=== PATIENT | male | born 1995 | race Caucasian/White ===

== ENCOUNTER 2019-09-11 18:12 | Inpatient (IN) | payer SELFPAY ==
[2019-09-11] VITALS (14 sets, daily range): BP systolic 106–134; BP diastolic 75–109
[~2019-09-11] VITALS: Ht 167.6 cm; Wt 61.2 kg
[2019-09-11] MEDS ORDERED: Naloxone 1mg/ml 2ml ONE ×2 (18:19→18:21)
--- NOTE | 2019-09-11 18:25 | NUR ---
ED Nurse Note: Pt brought in by ambulance d/t apparent overdose. Pt was found unconscious on the street. GCS 3. No gag reflex noted. Does not arouse to sternal rub. Pupils 2 cm and non-reactive to light. 6 mg of narcan given by EMS with no change. Pt does not follow with eyes. Pt is apneic. 8 respirations/min. O2 saturation of 96% on room air. 2 more mg of narcan given as verbally ordered by ED MD. No change in level of consciousness. ED MD plan to intubate to protect airway. IV inserted. All other vital signs stable as documented. Pt on the monitor. Addendum: 09/11/19 at 1922 by BDUTTON Pt noted to be diaphoretic. Afib on the monitor.
--- NOTE | 2019-09-11 18:41 | Emergency Room Report ---
History of Present Illness General Chief Complaint: Overdose Source: EMS Present Illness HPI Disclaimer: Please note that this report is being documented using [employer] technology. This can lead to erroneous entry secondary to incorrect interpretation by the dictating instrument. HPI: Toy De León presents by EMS for altered mental status. Reportedly, the patient walked into a convenience store fell to the ground and was unresponsive. He had a palpable pulse and good pressures on arrival though he was apneic. EMS gave 2 mg intramuscular Narcan without effect. Followed by 4 mg IV Narcan with mild improvement in his respiratory rate. He did not regain consciousness. Vital signs were stable during transport though he was being bagged for intermittent apnea. On arrival the patient does not respond to painful stimuli, has no gag reflex, agonal breathing with intermittent apnea. Intubated for airway protection. PMH: Unknown PSH: Unknown Allergies: Unknown Social Hx: Unknown Allergies: Coded Allergies: UNABLE TO ASSESS (Unverified , 09/11/19) Nursing Documentation-PMH Past Medical History Deferred: Patient Unconscious Past Medical History: Deferred Review of Systems All Other Systems: limited - Unable to obtain from patient due to clinical condition Physical Exam Vital Signs Date Time Temp Pulse Resp B/P (MAP) Pulse Ox O2 Delivery O2 Flow Rate FiO2 09/11/19 18:16 98.2 130 18 122/78 (93) 94 Room Air General: GCS 3 HEENT: NC/AT. Pupils are 3 mm and nonreactive. Pupils are equal. No evidence of head or neck trauma. Cardiovascular: Tachycardic. S1 and S2 normal. No murmur appreciated Resp: Agonal breathing with intermittent apnea. Lungs are clear otherwise. No wheezing Abdomen: Abdomen is soft, nondistended. Nontender Skin: Diaphoretic. Intact with no rash MSK: Normal tone and bulk. Spontaneous movements. No obvious deformity. Neuro: GCS 3 Procedures Critical Care Time Critical Care Time Total critical care time: Approximately 45 minutes Due to a high probability of clinically significant, life threatening deterioration, the patient required the highest level of preparedness to intervene emergently and I personally spent this critical care time directly and personally managing the patient. This critical care time included obtaining a history, examining the patient, pulse oximetry, ordering and reviewing studies , ordering treatments, evaluating response to treatment and updating management plan as needed, frequent reassessment and discussion with other providers as well as arranging for ultimate disposition. This critical to care time was performed to assess and manage the high probability of life-threatening deterioration that could result in multiorgan failure. This critical care time is separate from the separately billable procedures and treating other patients. Intubation Intubation : Consent: Emergent Intubation Method: orotracheal Tube Size (cm): 7.5 Medications: Etomidate - 20mg, Rocuronium - 100mg Breath Sounds after Intubation: equal Intubation Complications: no complications Post Intubation Xray: Yes Progress/Xray Impression: Endotracheal tube tip above the coleen Attempts: One Patient Tolerated: Well Complications: None Medical Decision Making Diagnostic Impression: Primary Impression: AMS (altered mental status) Additional Impressions: Respiratory failure Atrial fibrillation Substance abuse ER Course 24-year-old Toy De León brought in for altered mental status and for intoxication though he is diaphoretic and tachycardic with agonal respirations and periods of apnea. He was intubated for airway protection and low GCS. Patient be sent for head CT, broad labs including tox. He will be admitted to the ICU. Laboratory Tests Test 09/11/19 19:30 09/11/19 20:36 White Blood Count 9.0 K/UL (4.8-10.8) Red Blood Count 4.33 M/UL (4.70-6.10) L Hemoglobin 14.7 G/DL (14.2-18.0) Hematocrit 42.5 % (42.0-52.0) Mean Corpuscular Volume 98 FL (80-99) Mean Corpuscular Hemoglobin 33.9 PG (27.0-31.0) H Mean Corpuscular Hemoglobin Concent 34.5 G/DL (32.0-36.0) Red Cell Distribution Width 11.1 % (11.6-14.8) L Platelet Count 285 K/UL (150-450) Mean Platelet Volume 7.1 FL (6.5-10.1) Neutrophils (%) (Auto) 65.2 % (45.0-75.0) Lymphocytes (%) (Auto) 24.9 % (20.0-45.0) Monocytes (%) (Auto) 8.1 % (1.0-10.0) Eosinophils (%) (Auto) 1.0 % (0.0-3.0) Basophils (%) (Auto) 0.9 % (0.0-2.0) Urine Color Yellow Urine Appearance Slightly cloudy Urine pH 5 (4.5-8.0) Urine Specific [place] 1.025 (1.005-1.035) Urine Protein 1+ (NEGATIVE) H Urine Glucose (UA) Negative (NEGATIVE) Urine Ketones 3+ (NEGATIVE) H Urine Blood 1+ (NEGATIVE) H Urine Nitrite Negative (NEGATIVE) Urine Bilirubin Negative (NEGATIVE) Urine Urobilinogen Normal MG/DL (0.0-1.0) Urine Leukocyte Esterase Negative (NEGATIVE) Urine RBC 0-2 /HPF (0 - 0) H Urine WBC 0-2 /HPF (0 - 0) Urine Squamous Epithelial Cells None /LPF (NONE/OCC) Urine Bacteria Few /HPF (NONE) Sodium Level 138 MMOL/L (136-145) Potassium Level 3.9 MMOL/L (3.5-5.1) Chloride Level 102 MMOL/L (98-107) Carbon Dioxide Level 20 MMOL/L (21-32) L Anion Gap 16 mmol/L (5-15) H Blood Urea Nitrogen 27 mg/dL (7-18) H Creatinine 1.2 MG/DL (0.55-1.30) Estimate Glomerular Filtration Rate > 60 mL/min (>60) Glucose Level 91 MG/DL (74-106) Lactic Acid Level 0.80 mmol/L (0.4-2.0) Calcium Level 8.9 MG/DL (8.5-10.1) Total Bilirubin 1.1 MG/DL (0.2-1.0) H Direct Bilirubin 0.3 MG/DL (0.0-0.3) Aspartate Amino Transferase (AST) 39 U/L (15-37) H Alanine Aminotransferase (ALT) 47 U/L (12-78) Alkaline Phosphatase 51 U/L (46-116) Troponin I 0.000 ng/mL (0.000-0.056) Total Protein 7.0 G/DL (6.4-8.2) Albumin 4.2 G/DL (3.4-5.0) Globulin 2.8 g/dL Albumin/Globulin Ratio 1.5 (1.0-2.7) Salicylates Level < 0.2 ug/mL (2.8-20) L Urine Opiates Screen Negative (NEGATIVE) Acetaminophen Level < 2 MCG/ML (10-30) L Urine Barbiturates Screen Negative (NEGATIVE) Phencyclidine (PCP) Screen Negative (NEGATIVE) Urine Amphetamines Screen Positive (NEGATIVE) H Urine Benzodiazepines Screen Negative (NEGATIVE) Urine Cocaine Screen Positive (NEGATIVE) H Urine Marijuana (THC) Screen Positive (NEGATIVE) H Serum Alcohol < 3 mg/dL Arterial Blood pH 7.317 (7.350-7.450) Arterial Blood Partial Pressure CO2 30.2 mmHg (35.0-45.0) L Arterial Blood Partial Pressure O2 160.1 mmHg (75.0-100.0) H Arterial Blood HCO3 15.1 mmol/L (22.0-26.0) *L Arterial Blood Oxygen Saturation 98.7 % (95-100) Arterial Blood Base Excess -9.5 (-2-2) *L Hoang Test Positive EKG Diagnostic Results EKG Time: 18:42 Rate: tachycardiac Rhythm: other - Atrial fibrillation Rhythm Strip Diag. Results Rhythm Strip Time: 18:42 EP Interpretation: yes Rate: 100 Rhythm: other - Atrial fibrillation versus flutter Chest X-Ray Diagnostic Results Chest X-Ray Diagnostic Results : Chest X-Ray Ordered: Yes # of Views/Limited/Complete: 1 View Indication: Shortness of Breath EP Interpretation: Yes Interpretation: no consolidation, no effusion, no pneumothorax, other - Endotracheal tube above the coleen. Impression: Other - Endotracheal tube in satisfactory position Electronically Signed by: Electronically signed by Dr. Ramirez Davidson CT/MRI/US Diagnostic Results CT/MRI/US Diagnostic Results : Impression Numbers: [id number] Preliminary Findings Only See Final Report For Complete Findings CT HEAD Without Contrast: Nondisplaced nasal bone fracture. No acute intracranial hemorrhage mass-effect or edema. Radiologist: Hector Luque MD Reevaluation Time: 21:57 Last Vital Signs Date Time Temp Pulse Resp B/P (MAP) Pulse Ox O2 Delivery O2 Flow Rate FiO2 09/11/19 18:16 98.2 130 18 122/78 (93) 94 Room Air Reevaluation Impression Talk screen positive for methamphetamines, cocaine, THC. May have used a substance that has not test on our drug panel. Remainder of labs are within normal limits. Patient will be admitted to the ICU for further care. Disposition: ADMITTED INPATIENT Condition: Critical Ramirez Davidson MD Sep 11, 2019 18:41
[2019-09-11] MEDS ORDERED: Rocuronium Bromide 50mg/5ml Inj IV ONE (18:45)
[2019-09-11] MEDS ORDERED: Etomidate 40mg/20ml Inj IV ONE (18:45)
--- NOTE | 2019-09-11 18:50 | NUR ---
ED Nurse Note: Pt intubated @ 23 cm lip line. AC 18 VT 500 55% PEEP 5. 99% O2 saturation.
--- NOTE | 2019-09-11 18:50 | NUR ---
ED Nurse Note: Propofol drip started at hospital policy of 5 mcg/kg/min
[2019-09-11] MEDS ORDERED: Naloxone 1mg/ml 2ml IVP ONE (19:00)
--- NOTE | 2019-09-11 19:14 | NUR ---
ED Nurse Note: CXR and CT head done. Pt back in room. No acute distress. Vitals stable on the monitor.
--- NOTE | 2019-09-11 19:25 | NUR ---
ED Nurse Note: Report given to Carlos Michel RN. Pt in stable condition; plan of care endorsed.
--- NOTE | 2019-09-11 19:30 | NUR ---
ED Nurse Note: received patient from pedrito zapata. patient sleeping with no acute distress. vss. pt intubated; attached to vent; tolerating well. right ac iv intact and patent; propofol running as prescribed per protocol. left wrist iv infiltrated; discontinued. established iv on left ac 18 g. lactic, blood cultures, mrsa vre cre swab, urine collected; sent down to lab. removed clothing from patient, completed belongings list, dressed pt in gown, reattached to monitor. head of bed raised; bed locked in lowest position; side rails raised.will continue to monitor.
--- NOTE | 2019-09-11 19:40 | Diagnostic Imaging Report ---
Indication: Headache Technique: Contiguous 5 mm thick transaxial imaging of the head obtained in a Siemens Sensation [address] scanner. Soft tissue and bone windows generated. Automatic Exposure Control was utilized. Total Dose length Product (DLP): [address] Dose Index Volume (CTDIvol): 62.7 mGy Comparison: none Findings: The size and configuration of the cortical sulci, basal cisterns, and ventricles are within normal limits for age. There is no mass effect, midline shift, or edema identified. There is no evidence of acute hemorrhage or abnormal intra-axial or extra-axial fluid collections. There is a fracture of the nasal bone. Bones and soft tissues are otherwise unremarkable. Impression: No mass effect, edema or acute bleed. Fracture nasal bone The CT scanner at [facility] is accredited by the [employer] and the scans are performed using dose optimization techniques as appropriate to a performed exam including Automatic Exposure control.
--- NOTE | 2019-09-11 19:45 | NUR ---
ED Nurse Note: REPEAT EKG DONE BY ERTECH; PT IN AFIB
[2019-09-11 20:17] LABS: BASOPHILS % (AUTO) 0.9 % (0.0-2.0); HEMATOCRIT 42.5 % (42.0-52.0); HEMOGLOBIN 14.7 G/DL (14.2-18.0); LYMPHOCYTES % (AUTO) 24.9 % (20.0-45.0); MEAN CORPUSCULAR VOLUME 98 FL (80-99); MONOCYTES % (AUTO) 8.1 % (1.0-10.0); NEUTROPHILS % (AUTO) 65.2 % (45.0-75.0); PLATELET COUNT 285 K/UL (150-450); RED BLOOD COUNT 4.33 M/UL (4.70-6.10); RED CELL DISTRIBUTION WIDTH 11.1 % (11.6-14.8)
--- NOTE | 2019-09-11 20:23 | NUR ---
ED Nurse Note: rt at bedside for ABG
[2019-09-11 20:40] LABS: ANION GAP 16 mmol/L (5-15); BLOOD UREA NITROGEN 27 mg/dL (7-18); CALCIUM 8.9 MG/DL (8.5-10.1); CARBON DIOXIDE 20 MMOL/L (21-32); CHLORIDE 102 MMOL/L (98-107); CREATININE 1.2 MG/DL (0.55-1.30); POTASSIUM 3.9 MMOL/L (3.5-5.1); SODIUM 138 MMOL/L (136-145)
[2019-09-11 20:50] LABS: APPEARANCE,URINE SLIGHTLY CLOUDY; BILIRUBIN, URINE NEGATIVE (NEGATIVE); GLUCOSE, URINE (UA) NEGATIVE (NEGATIVE); KETONES,URINE 3+ (NEGATIVE); LEUKOCYTE ESTERASE ,URINE NEGATIVE (NEGATIVE); NITRITE,URINE NEGATIVE (NEGATIVE); PH,URINE 5 (4.5-8.0); PROTEIN,URINE 1+ (NEGATIVE); UROBILINOGEN,URINE NORMAL MG/DL (0.0-1.0)
[2019-09-11 20:52] LABS: COLOR,URINE YELLOW
[2019-09-11 20:56] LABS: ALANINE AMINOTRANSFERASE 47 U/L (12-78); ALBUMIN 4.2 G/DL (3.4-5.0); ALBUMIN/GLOBULIN RATIO 1.5 (1.0-2.7); ALKALINE PHOSPHATASE 51 U/L (46-116); ASPARTATE AMINO TRANSFERASE 39 U/L (15-37); BILIRUBIN,TOTAL 1.1 MG/DL (0.2-1.0)
--- NOTE | 2019-09-11 21:00 | NUR ---
ED Nurse Note: rt at bedside. titrated fi02 from 50% to 40%
[2019-09-11 21:02] LABS: BILIRUBIN,DIRECT 0.3 MG/DL (0.0-0.3)
--- NOTE | 2019-09-11 21:10 | NUR ---
ED Nurse Note: Report given to emily zapata.
[2019-09-11] MEDS ORDERED: Nitroglycerin Subl 0.4mg tab SL PRN (21:15)
[2019-09-11] MEDS ORDERED: dilTIAZem HCl 25mg/5ml Inj IV PRN (21:15)
[2019-09-11] MEDS ORDERED: Albuterol/Ipratropium 3ml neb HHN PRN (21:15)
--- NOTE | 2019-09-11 21:15 | NUR ---
TRANSFER TO FLOOR: Patient transferred to icu 246e as ordered, per williams shine. Report given to emily zapata. patient stable for transfer. transported patient to unit via gurney with 2 rn and rt. patient left with belongings and admission packet.
--- NOTE | 2019-09-11 21:30 | NUR ---
NURSE NOTES: Patient admitted from ER via rney accompanied by RN and agricultural research technician. Admitted under the care of Dr. Mota with admitting diagnosis of AMS. Patient is lethargic with on and off episode of trying to pull out tubing. patient is intubated ETT 7.5/23cm AC 18, TV 500, Fi02 40%, peep of 5 satting 100%. Patient identity is unknown at this time. HOB elevated. inserted condom cath. Temp 97.9 Oral. body assessment done. bed alarm on. bed locked n ad in low position. Admission orders placed by Dr Cadena. will continue plan of care.
[2019-09-11] MEDS: D5 1/2NS 1,000 ML IV SCH (22:23)
--- NOTE | 2019-09-11 22:53 | Diagnostic Imaging Report ---
Indication: Abdominal pain Comparison: None Single view of the abdomen obtained Findings: NG tube is present. The proximal and distal ports are in the stomach. Bowel gas pattern is nonspecific. Bones are unremarkable. IMPRESSION: NG tube in good position. No acute findings
--- NOTE | 2019-09-11 22:54 | NUR ---
RESPIRATORY NOTE: Received pt from ED on AC 16, 600VT, 40%, PEEP +5. Pt intubated w/ ETT 7.5 @ 23cm lipline, secured by anchorfast. Pt asleep/lethargic. B/S weston. diminished, nonproductive cough, sxn prn scant amounts of thin, clear secretions, oral sxn w/ bloody secretions. Both hands on soft restraints to prevent pt from self extubation. Vent plugged into red outlet, ambubag at bedside. Pt in no apparent distress at this time. Will continue to monitor pt.
--- NOTE | 2019-09-11 23:30 | NUR ---
NURSE NOTES: patient with on and off episode of pulling out tubing, kicking reality orientation provided. repositioned. patient with 50cc brownish residual from OGT. HOB elevated. Bilateral soft wrist restraint checked. frequent visual checks continued. condom cath intact no urine output. will continue to monitor patient.
[2019-09-12] VITALS (33 sets, daily range): BP systolic 90–127; BP diastolic 47–98
[2019-09-12] MEDS: LORazepam Inj 2mg/ml 1ml IV PRN ×4 (00:37→09:36)
--- NOTE | 2019-09-12 00:37 | NUR ---
NURSE NOTES: patient with episode of agitation kicking, hitting, pulling tubing despite of bilateral soft wrist restraint reality orientation provided explained the importance v/s risk and benefits not effective also pt with episode of vomiting brownish secretion. HOB elevated. Ativan 2mg and Zofran given will continue to monitor patient.
[2019-09-12] MEDS: Morphine Sulfate 4mg/ml Inj (IV USE ONLY) IVP PRN ×2 (01:45→07:07)
--- NOTE | 2019-09-12 03:00 | NUR ---
NURSE NOTES: patient with episode of agitation kicking, hitting, pulling tubing despite of bilateral soft wrist restraint reality orientation provided explained the importance v/s risk and benefits not effective HOB elevated. Ativan 2mg given will continue to monitor patient. frequent visual checks continued.
--- NOTE | 2019-09-12 05:09 | NUR ---
NURSE NOTES: patient with episode of agitation kicking, hitting, pulling tubing despite of bilateral soft wrist restraint reality orientation provided explained the importance v/s risk and benefits not effective HOB elevated. Ativan 2mg given will continue to monitor patient. left message to Dr. Cadena regarding patient very agitated. will follow up. frequent visual checks continued.
[2019-09-12 06:10] LABS: HEMATOCRIT 33.5 % (42.0-52.0); HEMOGLOBIN 12.5 G/DL (14.2-18.0); LYMPHOCYTES % (AUTO) 20.1 % (20.0-45.0); MEAN CORPUSCULAR VOLUME 94 FL (80-99); MONOCYTES % (AUTO) 8.5 % (1.0-10.0); NEUTROPHILS % (AUTO) 69.4 % (45.0-75.0); PLATELET COUNT 323 K/UL (150-450); RED BLOOD COUNT 3.58 M/UL (4.70-6.10); RED CELL DISTRIBUTION WIDTH 10.6 % (11.6-14.8); WHITE BLOOD COUNT 10.6 K/UL (4.8-10.8)
[2019-09-12 06:35] LABS: ALANINE AMINOTRANSFERASE 43 U/L (12-78); ALBUMIN 4.2 G/DL (3.4-5.0); ALKALINE PHOSPHATASE 53 U/L (46-116); ASPARTATE AMINO TRANSFERASE 37 U/L (15-37); BILIRUBIN,DIRECT 0.2 MG/DL (0.0-0.3); BILIRUBIN,TOTAL 1.5 MG/DL (0.2-1.0); LACTATE DEHYDROGENASE 272 U/L (81-234); PHOSPHORUS 4.7 MG/DL (2.5-4.9)
--- NOTE | 2019-09-12 06:53 | NUR ---
NURSE NOTES: Dr Cadena made aware of patient agitated, vomited with 200cc dark color with new order noted and carried out.
[2019-09-12] MEDS ORDERED: Haloperidol Lactate 5 MG in D5W 55 ML IVPB PRN ×2 (07:00→11:00)
--- NOTE | 2019-09-12 07:15 | NUR ---
HAND-OFF: Report given to Brandi BLANCO. Morphine given for pain.
--- NOTE | 2019-09-12 07:16 | NUR ---
NURSE NOTES: Received patient from FRANCIS Chin. Patient admitted last night for possible over dose. Patient sits up in bed and kicks legs but does not open eyes or attempt to communicate. Identity of patient is still unknown. Patient orally intubated with size 7.5cm ET tube with 23cm at the lip line. Ventilator setting is AC 18, tidal volume 600, FiO2 40%, and PEEP 5. Patient NPO at this time. Patient vomited bloody emesis and coffee ground emesis during the night. Patient has oral gastric tube that is hooked to low intermittent suction. Gastric secretion is red/brown in color. Patient has bilateral AC peripheral 18 gauge IVs that are patent, asymptomatic. The right AC PIV is running D5 0.45% NS at 75mL/hr at this time. Left AC IV saline locked. Patient has becerra for urine retention that is patent, asymptomatic, and draining light michael urine at this time. Patient on bilateral soft wrist restraint due to him being witnessed attempting to self extubate. Patient peripheral pulses present. Skin intact. Patient bed in low position with bed alarm on and call light in reach at this time. Patient repositioned and oral care performed at this time. Will continue to monitor.
[2019-09-12 07:27] LABS: ANION GAP 19 mmol/L (5-15); BLOOD UREA NITROGEN 18 mg/dL (7-18); CALCIUM 8.9 MG/DL (8.5-10.1); CARBON DIOXIDE 16 MMOL/L (21-32); CHLORIDE 102 MMOL/L (98-107); POTASSIUM 4.1 MMOL/L (3.5-5.1); SODIUM 137 MMOL/L (136-145)
--- NOTE | 2019-09-12 08:54 | NUR ---
RD ASSESSMENT & RECOMMENDATIONS SEE CARE ACTIVITY FOR COMPLETE ASSESSMENT DAILY ESTIMATED NEEDS: Needs based on critical care 61.4kg 22-28 kcals/kg [id number] total kcals 1.2-2 g protein/kg 74-123 g total protein 25-30 mL/kg 0057-6038 total fluid mLs NUTRITION DIAGNOSIS: Swallowing difficulty r/t resp status as evidenced by pt w/ overdose, positive tox screening, no intubated, ICU status, NPO. CURRENT DIET: NPO ENTERAL NUTRITION RECOMMENDATIONS: Vital 1.2 @55ml/hr x24 hrs to provide 1320ml, 1584 kcal, 99g pro, 1071ml free H2O - When medically appropriate, rec non oral feeds while intubated. - Start Vital 1.2 @15ml/hr x6 hrs. Advance as tolerated 10ml/hr q4-6 hrs to goal. - Flush per MD. HOB over 30 degrees ADDITIONAL RECOMMENDATIONS: 1) TF recs as above when medically appropriate to feeds 2) Check A1C 3) Maintain calibrated bed scale wts 4) F/up w/ GI
[2019-09-12] MEDS ORDERED: Heparin 5000 units/ml inj SUBQ SCH (09:00)
--- NOTE | 2019-09-12 09:06 | NUR ---
NURSE NOTES: Heparin held as patient has bloody/black/brown emesis and Hgb level dropped overnight.
--- NOTE | 2019-09-12 09:36 | NUR ---
NURSE NOTES: Patient opened eyes and attempted to communicate. He tried to ask what happen. Patient informed that he was found passed out in a drug store and was brought to the hospital and intubated because he was unresponsive. Unable to assess patient's level of understanding at this time. Patient restless and trying to get out of bed. Patient told that he needs to stay calm and stay in bed for now. Ativan given at this time to help patient stay calm. Will continue to monitor.
--- NOTE | 2019-09-12 10:33 | Pulmonolgy Critical Care Note ---
Critical Care - Asmt/Plan Problems: (1) Acute respiratory failure (2) AMS (altered mental status) (3) Multiple drug overdose Respiratory: monitor respiratory rate, adjust FIO2, other - extubate when awake Cardiac: continue to monitor HR/BP Renal: F/U I&O Infectious Disease: check cultures Gastrointestinal: continue feedings/current rate Endocrine: monitor blood sugar Hematologic: monitor H/H Neurologic: PRN Ativan Disposition: keep in ICU Notes Reviewed: cardio Discussed with: nurses, consultants, field case managersenior national account manager - Objective Last 24 Hour Vital Signs Date Time Temp Pulse Resp B/P (MAP) Pulse Ox O2 Delivery O2 Flow Rate FiO2 09/12/19 08:59 99 16 30 09/12/19 07:00 90 16 121/83 (96) 100 09/12/19 06:38 104 16 40 09/12/19 06:30 89 16 113/81 (92) 100 09/12/19 06:30 89 16 09/12/19 06:00 89 16 123/83 (96) 100 09/12/19 05:30 99 16 120/81 (94) 100 09/12/19 05:05 104 25 40 09/12/19 05:00 98.4 128 24 105/85 (92) 100 09/12/19 04:00 Mechanical Ventilator 09/12/19 04:00 40 09/12/19 04:00 106 16 123/98 (106) 09/12/19 04:00 111 09/12/19 03:00 116 16 126/70 (88) 100 09/12/19 02:59 107 16 40 09/12/19 02:30 100 16 127/69 (88) 100 09/12/19 02:15 97.9 09/12/19 02:00 95 16 120/88 (99) 100 09/12/19 01:30 95 16 122/92 (102) 100 09/12/19 01:00 92 16 118/84 (95) 100 09/12/19 00:55 84 16 40 09/12/19 00:30 121 21 125/84 (98) 100 09/12/19 00:00 97.9 82 16 114/82 (93) 100 09/12/19 00:00 Mechanical Ventilator 09/12/19 00:00 71 09/12/19 00:00 40 09/11/19 23:30 73 16 116/75 (89) 100 09/11/19 23:15 70 16 119/86 (97) 100 09/11/19 23:00 72 16 121/86 (98) 100 09/11/19 22:51 75 16 40 09/11/19 22:51 Mechanical Ventilator 09/11/19 22:45 69 16 117/84 (95) 100 09/11/19 22:30 66 16 112/85 (94) 100 09/11/19 22:15 65 18 106/80 (89) 100 09/11/19 22:00 70 17 114/80 (91) 100 09/11/19 21:45 74 18 116/96 (103) 100 09/11/19 21:39 71 16 125/99 (108) 100 09/11/19 21:39 83 18 100 Mechanical Ventilator 40 09/11/19 21:39 83 18 40 09/11/19 21:30 97.7 82 19 100 09/11/19 21:29 43 09/11/19 21:15 98.2 77 18 123/98 100 Mechanical Ventilator 40 09/11/19 21:00 98.2 77 18 123/98 100 Mechanical Ventilator 40 09/11/19 20:56 40 09/11/19 20:30 98.2 77 18 116/91 100 Mechanical Ventilator 50 09/11/19 20:28 18 116/91 Mechanical Ventilator 50 09/11/19 20:20 18 126/90 Mechanical Ventilator 50 09/11/19 20:05 18 124/96 Mechanical Ventilator 50 09/11/19 20:00 98.2 77 18 134/109 100 Mechanical Ventilator 50 09/11/19 19:50 18 134/109 Mechanical Ventilator 50 09/11/19 19:35 18 126/99 Mechanical Ventilator 50 09/11/19 19:30 98.2 77 18 126/99 100 Mechanical Ventilator 55 09/11/19 19:30 50 09/11/19 19:20 18 115/84 Mechanical Ventilator 55 09/11/19 19:05 18 118/98 Mechanical Ventilator 55 09/11/19 18:49 25 104/61 Mechanical Ventilator 09/11/19 18:35 98.2 102 8 122/78 94 Room Air 09/11/19 18:35 105 8 Room Air 09/11/19 18:16 98.2 130 18 122/78 (93) 94 Room Air Status: sedated Condition: critical HEENT: atraumatic Neck: full ROM Lungs: chest wall tender Heart: HR/BP unstable Abdomen: non-tender, feeding tube Extremities: no C/C/E Critical Care - Subjective ROS Limited/Unobtainable: Yes Interval Events: Paramedics brought this young davy to ER from a store unconsciousness. He was intubated in ER and transferred to ICU. FI02: 30 Vent Support Breath Rate: 16 Vent Support Mode: AC Vent Tidal Volume: 600 Sputum Amount: None PEEP: 5.0 PIP: 22 I&O: Intake and Output 09/11/19 09/12/19 19:00 07:00 Intake Total 0 ml 637.312 ml Output Total 1500 ml Balance 0 ml -862.688 ml Intake Oral 0 ml IV Total 637.312 ml Output Urine Total 1300 ml Gastric Drainage Total 200 ml ET-Tube: 7.0 ET Position: 23 Labs: Laboratory Tests Test 09/11/19 19:30 09/11/19 20:36 09/12/19 04:50 White Blood Count 9.0 K/UL (4.8-10.8) 10.6 K/UL (4.8-10.8) Red Blood Count 4.33 M/UL (4.70-6.10) L 3.58 M/UL (4.70-6.10) L Hemoglobin 14.7 G/DL (14.2-18.0) 12.5 G/DL (14.2-18.0) L Hematocrit 42.5 % (42.0-52.0) 33.5 % (42.0-52.0) L Mean Corpuscular Volume 98 FL (80-99) 94 FL (80-99) Mean Corpuscular Hemoglobin 33.9 PG (27.0-31.0) H 34.9 PG (27.0-31.0) H Mean Corpuscular Hemoglobin Concent 34.5 G/DL (32.0-36.0) 37.3 G/DL (32.0-36.0) H Red Cell Distribution Width 11.1 % (11.6-14.8) L 10.6 % (11.6-14.8) L Platelet Count 285 K/UL (150-450) 323 K/UL (150-450) Mean Platelet Volume 7.1 FL (6.5-10.1) 5.5 FL (6.5-10.1) L Neutrophils (%) (Auto) 65.2 % (45.0-75.0) 69.4 % (45.0-75.0) Lymphocytes (%) (Auto) 24.9 % (20.0-45.0) 20.1 % (20.0-45.0) Monocytes (%) (Auto) 8.1 % (1.0-10.0) 8.5 % (1.0-10.0) Eosinophils (%) (Auto) 1.0 % (0.0-3.0) 1.0 % (0.0-3.0) Basophils (%) (Auto) 0.9 % (0.0-2.0) 1.0 % (0.0-2.0) Urine Color Yellow Urine Appearance Slightly cloudy Urine pH 5 (4.5-8.0) Urine Specific [place] 1.025 (1.005-1.035) Urine Protein 1+ (NEGATIVE) H Urine Glucose (UA) Negative (NEGATIVE) Urine Ketones 3+ (NEGATIVE) H Urine Blood 1+ (NEGATIVE) H Urine Nitrite Negative (NEGATIVE) Urine Bilirubin Negative (NEGATIVE) Urine Urobilinogen Normal MG/DL (0.0-1.0) Urine Leukocyte Esterase Negative (NEGATIVE) Urine RBC 0-2 /HPF (0 - 0) H Urine WBC 0-2 /HPF (0 - 0) Urine Squamous Epithelial Cells None /LPF (NONE/OCC) Urine Bacteria Few /HPF (NONE) Sodium Level 138 MMOL/L (136-145) 137 MMOL/L (136-145) Potassium Level 3.9 MMOL/L (3.5-5.1) 4.1 MMOL/L (3.5-5.1) Chloride Level 102 MMOL/L (98-107) 102 MMOL/L (98-107) Carbon Dioxide Level 20 MMOL/L (21-32) L 16 MMOL/L (21-32) L Anion Gap 16 mmol/L (5-15) H 19 mmol/L (5-15) H Blood Urea Nitrogen 27 mg/dL (7-18) H 18 mg/dL (7-18) Creatinine 1.2 MG/DL (0.55-1.30) 1.0 MG/DL (0.55-1.30) Estimat Glomerular Filtration Rate > 60 mL/min (>60) > 60 mL/min (>60) Glucose Level 91 MG/DL (74-106) 109 MG/DL (74-106) H Lactic Acid Level 0.80 mmol/L (0.4-2.0) Calcium Level 8.9 MG/DL (8.5-10.1) 8.9 MG/DL (8.5-10.1) Total Bilirubin 1.1 MG/DL (0.2-1.0) H 1.5 MG/DL (0.2-1.0) H Direct Bilirubin 0.3 MG/DL (0.0-0.3) 0.2 MG/DL (0.0-0.3) Aspartate Amino Transf (AST/SGOT) 39 U/L (15-37) H 37 U/L (15-37) Alanine Aminotransferase (ALT/SGPT) 47 U/L (12-78) 43 U/L (12-78) Alkaline Phosphatase 51 U/L (46-116) 53 U/L (46-116) Troponin I 0.000 ng/mL (0.000-0.056) Total Protein 7.0 G/DL (6.4-8.2) 7.6 G/DL (6.4-8.2) Albumin 4.2 G/DL (3.4-5.0) 4.2 G/DL (3.4-5.0) Globulin 2.8 g/dL Albumin/Globulin Ratio 1.5 (1.0-2.7) Salicylates Level < 0.2 ug/mL (2.8-20) L Urine Opiates Screen Negative (NEGATIVE) Acetaminophen Level < 2 MCG/ML (10-30) L Urine Barbiturates Screen Negative (NEGATIVE) Phencyclidine (PCP) Screen Negative (NEGATIVE) Urine Amphetamines Screen Positive (NEGATIVE) H Urine Benzodiazepines Screen Negative (NEGATIVE) Urine Cocaine Screen Positive (NEGATIVE) H Urine Marijuana (THC) Screen Positive (NEGATIVE) H Serum Alcohol < 3 mg/dL Arterial Blood pH 7.317 (7.350-7.450) Arterial Blood Partial Pressure CO2 30.2 mmHg (35.0-45.0) L Arterial Blood Partial Pressure O2 160.1 mmHg (75.0-100.0) H Arterial Blood HCO3 15.1 mmol/L (22.0-26.0) *L Arterial Blood Oxygen Saturation 98.7 % (95-100) Arterial Blood Base Excess -9.5 (-2-2) *L Hoang Test Positive Prothrombin Time 10.7 SEC (9.30-11.50) Prothromb Time International Ratio 1.0 (0.9-1.1) Activated Partial Thromboplast Time 27 SEC (23-33) Phosphorus Level 4.7 MG/DL (2.5-4.9) Lactate Dehydrogenase 272 U/L (81-234) H Poli Cadena MD Sep 12, 2019 10:33
[2019-09-12] MEDS: D5 1/2NS 1,000 ML IV SCH ×2 (10:40→23:57)
--- NOTE | 2019-09-12 11:38 | GI Initial Consult Note ---
History of Present Illness General Date patient seen: Sep 12, 2019 Time patient seen: 11:31 Reason for Hospitalization: Overdose Referring physician: KATHY GORDON Reason for Consultation: GI BLEED Present Illness HPI Toy De León presents by EMS for altered mental status. Reportedly, the patient walked into a convenience store fell to the ground and was unresponsive. He had a palpable pulse and good pressures on arrival though he was apneic. EMS gave 2 mg intramuscular Narcan without effect. Followed by 4 mg IV Narcan with mild improvement in his respiratory rate. He did not regain consciousness. Vital signs were stable during transport though he was being bagged for intermittent apnea. On arrival the patient does not respond to painful stimuli , has no gag reflex, agonal breathing with intermittent apnea. Intubated for airway protection. GI consulted for coffee-ground emesis. ROS limited, patient unconscious intubated with in the ICU. Patient seen, periods of alertness. Patient presently has orogastric tube, noted with coffee-ground emesis.Laboratory reviewed; hemoglobin 12.5 hematocrit 33.5, INR 1.0, total bilirubin 1.5. Unable to obtain any history from the patient. Unknown history of endoscopic or colonoscopy. CT of the head with no contrast noted no mass-effect, edema or acute bleed. Urine toxicity positive for amphetamines, cocaine, marijuana. Med list reviewed/reconciled: Yes Allergies: Coded Allergies: UNABLE TO ASSESS (Unverified , 09/11/19) Patient History History Provided By: Medical Record PMH Narrative PMH: Unknown PSH: Unknown Allergies: Unknown Social Hx: Unknown Allergies: Coded Allergies: UNABLE TO ASSESS (Unverified , 09/11/19) Nursing Documentation-[facility] Past Medical History Deferred: Patient Unconscious Past Medical History: Deferred Social History: Reports: drug use Review of Systems All Other Systems: limited Physical Exam Vital Signs Date Time Temp Pulse Resp B/P (MAP) Pulse Ox O2 Delivery O2 Flow Rate FiO2 09/11/19 18:16 98.2 130 18 122/78 (93) 94 Room Air 09/11/19 19:05 55 Sp02 EP Interpretation: reviewed Labs Laboratory Tests Test 09/11/19 19:30 09/11/19 20:36 09/12/19 04:50 White Blood Count 9.0 K/UL (4.8-10.8) 10.6 K/UL (4.8-10.8) Red Blood Count 4.33 M/UL (4.70-6.10) L 3.58 M/UL (4.70-6.10) L Hemoglobin 14.7 G/DL (14.2-18.0) 12.5 G/DL (14.2-18.0) L Hematocrit 42.5 % (42.0-52.0) 33.5 % (42.0-52.0) L Mean Corpuscular Volume 98 FL (80-99) 94 FL (80-99) Mean Corpuscular Hemoglobin 33.9 PG (27.0-31.0) H 34.9 PG (27.0-31.0) H Mean Corpuscular Hemoglobin Concent 34.5 G/DL (32.0-36.0) 37.3 G/DL (32.0-36.0) H Red Cell Distribution Width 11.1 % (11.6-14.8) L 10.6 % (11.6-14.8) L Platelet Count 285 K/UL (150-450) 323 K/UL (150-450) Mean Platelet Volume 7.1 FL (6.5-10.1) 5.5 FL (6.5-10.1) L Neutrophils (%) (Auto) 65.2 % (45.0-75.0) 69.4 % (45.0-75.0) Lymphocytes (%) (Auto) 24.9 % (20.0-45.0) 20.1 % (20.0-45.0) Monocytes (%) (Auto) 8.1 % (1.0-10.0) 8.5 % (1.0-10.0) Eosinophils (%) (Auto) 1.0 % (0.0-3.0) 1.0 % (0.0-3.0) Basophils (%) (Auto) 0.9 % (0.0-2.0) 1.0 % (0.0-2.0) Urine Color Yellow Urine Appearance Slightly cloudy Urine pH 5 (4.5-8.0) Urine Specific [place] 1.025 (1.005-1.035) Urine Protein 1+ (NEGATIVE) H Urine Glucose (UA) Negative (NEGATIVE) Urine Ketones 3+ (NEGATIVE) H Urine Blood 1+ (NEGATIVE) H Urine Nitrite Negative (NEGATIVE) Urine Bilirubin Negative (NEGATIVE) Urine Urobilinogen Normal MG/DL (0.0-1.0) Urine Leukocyte Esterase Negative (NEGATIVE) Urine RBC 0-2 /HPF (0 - 0) H Urine WBC 0-2 /HPF (0 - 0) Urine Squamous Epithelial Cells None /LPF (NONE/OCC) Urine Bacteria Few /HPF (NONE) Sodium Level 138 MMOL/L (136-145) 137 MMOL/L (136-145) Potassium Level 3.9 MMOL/L (3.5-5.1) 4.1 MMOL/L (3.5-5.1) Chloride Level 102 MMOL/L (98-107) 102 MMOL/L (98-107) Carbon Dioxide Level 20 MMOL/L (21-32) L 16 MMOL/L (21-32) L Anion Gap 16 mmol/L (5-15) H 19 mmol/L (5-15) H Blood Urea Nitrogen 27 mg/dL (7-18) H 18 mg/dL (7-18) Creatinine 1.2 MG/DL (0.55-1.30) 1.0 MG/DL (0.55-1.30) Estimat Glomerular Filtration Rate > 60 mL/min (>60) > 60 mL/min (>60) Glucose Level 91 MG/DL (74-106) 109 MG/DL (74-106) H Lactic Acid Level 0.80 mmol/L (0.4-2.0) Calcium Level 8.9 MG/DL (8.5-10.1) 8.9 MG/DL (8.5-10.1) Total Bilirubin 1.1 MG/DL (0.2-1.0) H 1.5 MG/DL (0.2-1.0) H Direct Bilirubin 0.3 MG/DL (0.0-0.3) 0.2 MG/DL (0.0-0.3) Aspartate Amino Transf (AST/SGOT) 39 U/L (15-37) H 37 U/L (15-37) Alanine Aminotransferase (ALT/SGPT) 47 U/L (12-78) 43 U/L (12-78) Alkaline Phosphatase 51 U/L (46-116) 53 U/L (46-116) Troponin I 0.000 ng/mL (0.000-0.056) Total Protein 7.0 G/DL (6.4-8.2) 7.6 G/DL (6.4-8.2) Albumin 4.2 G/DL (3.4-5.0) 4.2 G/DL (3.4-5.0) Globulin 2.8 g/dL Albumin/Globulin Ratio 1.5 (1.0-2.7) Salicylates Level < 0.2 ug/mL (2.8-20) L Urine Opiates Screen Negative (NEGATIVE) Acetaminophen Level < 2 MCG/ML (10-30) L Urine Barbiturates Screen Negative (NEGATIVE) Phencyclidine (PCP) Screen Negative (NEGATIVE) Urine Amphetamines Screen Positive (NEGATIVE) H Urine Benzodiazepines Screen Negative (NEGATIVE) Urine Cocaine Screen Positive (NEGATIVE) H Urine Marijuana (THC) Screen Positive (NEGATIVE) H Serum Alcohol < 3 mg/dL Arterial Blood pH 7.317 (7.350-7.450) Arterial Blood Partial Pressure CO2 30.2 mmHg (35.0-45.0) L Arterial Blood Partial Pressure O2 160.1 mmHg (75.0-100.0) H Arterial Blood HCO3 15.1 mmol/L (22.0-26.0) *L Arterial Blood Oxygen Saturation 98.7 % (95-100) Arterial Blood Base Excess -9.5 (-2-2) *L Hoang Test Positive Prothrombin Time 10.7 SEC (9.30-11.50) Prothromb Time International Ratio 1.0 (0.9-1.1) Activated Partial Thromboplast Time 27 SEC (23-33) Phosphorus Level 4.7 MG/DL (2.5-4.9) Lactate Dehydrogenase 272 U/L (81-234) H Head: normocephalic EENT: normal ENT inspection Neck: supple Respiratory: normal breath sounds Cardiovascular: normal rate Gastrointestinal: soft Rectal: deferred Neurologic: oriented x3 Skin: normal inspection, normal color, no rash, warm/dry Lymphatic: normal inspection, no adenopathy Current Medications Current Medications Medications (Trade) Dose Ordered Sig/Peña Route PRN Reason Start Time Stop Time Status Last Admin Dose Admin Acetaminophen (Tylenol) 650 mg Q4H PRN ORAL Fever 09/11/19 21:15 10/11/19 21:14 Albuterol/ Ipratropium (Albuterol/ Ipratropium) 3 ml Q4H PRN HHN Shortness of Breath 09/11/19 21:15 09/16/19 21:14 Dextrose (Dextrose 50%) 25 ml Q30M PRN IV Hypoglycemia 09/11/19 21:15 10/11/19 21:14 Dextrose (Dextrose 50%) 50 ml Q30M PRN IV Hypoglycemia 09/11/19 21:15 10/11/19 21:14 Dextrose/Sodium Chloride 1,000 ml @ 75 mls/hr [id number] IV 09/11/19 21:11 10/11/19 21:10 09/12/19 10:40 Diltiazem HCl (Cardizem) 10 mg Q1H PRN IV heart rate more than 120, 09/11/19 21:15 10/11/19 21:14 Haloperidol Lactate 5 mg/ Dextrose 56 ml @ 224 mls/hr Q4H PRN IVPB Agitation-2ND CHOICE 09/12/19 11:00 10/12/19 06:59 Nitroglycerin (Ntg) 0.4 mg Q5M PRN SL Prn Chest Pain 09/11/19 21:15 10/11/19 21:14 Ondansetron HCl (Zofran) 4 mg Q6H PRN IVP Nausea & Vomiting 09/11/19 21:15 10/11/19 21:14 09/12/19 00:37 Pantoprazole (Protonix) 40 mg EVERY 12 HOURS IVP 09/12/19 12:00 10/12/19 11:59 GI: Plan Problems: (1) Coffee ground emesis (2) Anemia (3) Pancreatitis (4) Vomiting (5) Substance abuse (6) Multiple drug overdose Plan Maintain patient n.p.o. plus IV fluids Maintain orogastric tube to low intermittent suction elevated HOB Monitor H&H, as needed transfusions to maintain hemoglobin above 7 Start patient on Protonix 40 mg twice daily We will check lipase level Hold blood thinners We will follow with additional recommendations on a daily basis Repeat labs for tomorrow Discussed with Dr. Kearns. Thank you for this patient referral, we will follow. The patient was seen and examined at bedside and all new and available data was reviewed in the patients chart. I agree with the above findings, impression and plan. (Patient seen earlier today. Signature stamp does not reflect patient encounter time.). - MD Lin Abreu AnhMoy PATEL Sep 12, 2019 11:38
--- NOTE | 2019-09-12 11:43 | History & Physical ---
History and Physical History & Physicial Luc Mota MD Sep 12, 2019 11:43
--- NOTE | 2019-09-12 11:44 | Diagnostic Imaging Report ---
Indication: Dyspnea Comparison: None A single view chest radiograph was obtained. Findings: Cardiomediastinal appearance is within normal limits for age. The lungs are clear. Pulmonary vascularity is appropriate. The diaphragmatic contour is smooth and costophrenic angles are sharp. No pleural effusions are identified. The bones are unremarkable. Impression: No acute findings
--- NOTE | 2019-09-12 11:53 | NUR ---
RADIOLOGY DEPT., CHEST X-RAY DONE.-P.DYE
--- NOTE | 2019-09-12 12:00 | NUR ---
NURSE NOTES: Patient extubated at this time per Dr Cadena order. Patient still unable to say his name and is confused about how he got here. Patient told where he is and how he got here. Patient responded, "Are you Lax? Where is Lax?" and then laid down and went back to sleep. Patient on 3L NC with oxygen saturation 100% and no sign of stridor or respiratory distress. Patient restraints removed at this time. Patient OGT removed with ET tube. L AC 18 gauge peripheral IV remains intact and saline locked. Right AC 18 gauge peripheral IV running D5 0.45% NS at 75mL/hr. Lock remains in place. Patient not putting out much urine at this time. Patient bed in low position with bed alarm on and call light in reach. Will continue to monitor and obtain patient information when possible.
--- NOTE | 2019-09-12 12:00 | NUR ---
RESPIRATORY NOTE: Extubated pt per Dr. Cadena's order. Placed pt on 3L NC 32%FiO2. Pt is awake, alert, no stridor, no SOB or resp distress noted. FRANCIS banks bedside and aware. Will continue to monitor.
--- NOTE | 2019-09-12 12:09 | Diagnostic Imaging Report ---
Indication: Dyspnea Comparison: 09/11/2019 A single view chest radiograph was obtained. Findings: Overlying respiratory tubing obscures the part of the chest. Endotracheal tube is in good position. Heart size remains normal. No obvious infiltrate or pulmonary edema identified. IMPRESSION: No acute findings. No change
[2019-09-12] MEDS: Pantoprazole Inj IVP SCH ×2 (12:29→21:56)
--- NOTE | 2019-09-12 14:00 | NUR ---
NURSE NOTES: Patient able to say his name but still confused to where he is and how he got here. Patient reoriented. Patient HR remains elevated in sinus tachycardia with rate ranging from 105-120. Will continue to monitor and obtain more information when possible.
--- NOTE | 2019-09-12 14:56 | NUR ---
CASE MANAGEMENT: INITIAL REVIEW 24 Y/O MALE BIBA FROM [employer] UNRESPONSIVE CC: OVERDOSE SI:AMS.INTUBATED T:98.2 P:108 R:8 122/78 94% RA AMPHETAMINES (+) COCAINE (+) ABG~ PH 7.317 pCO2 30.2 p02 160.1 ABG~ HCO3 15.1 ABASE EXCESS -9.5 IS:MECH. VENTILATOR SET RATE:18 SET TIDAL VOL:500 PEEP: 5.0 ETT SIZE: 7.0 PROPOFOL IV NARCAN IV X1 POTASSIUM IVPB X1 AMIDATE IV X1 ROCURONIUM BROMIDE IV X1 ABD X-RAY~ NGT CONFIRMED CXR~ NEG CT HEAD NO CONTRAST~ FRACTURE NASAL BONE ~~~~~ICU STATUS
--- NOTE | 2019-09-12 16:00 | NUR ---
NURSE NOTES: Patient awake enough to have a conversation. He doesn't remember how he got to the hospital or the events leading up to it, but he is able to tell his birthday, address, and the fact that he is visiting from [place]. Bilateral IV's remain patent. Patient remains NPO per GI MD. Lock remains in place. Patient remains on IV fluid of D5 0.45% NS at 75mL/hr. HR remains elevated at this time. Patient now on room air with no sign of stridor or respiratory distress with oxygen saturation 95% and RR 20. Will continue to monitor.
--- NOTE | 2019-09-12 16:45 | History and Physical Report ---
DATE OF ADMISSION: 09/11/2019 CHIEF COMPLAINT: Altered mental status and respiratory distress. HISTORY OF PRESENT ILLNESS: This is a 24-year-old gentleman with unknown name, who presented to the hospital after he was found altered mental status by the EMS. The patient walked into the convenience store, fell down to the ground, was unresponsive. He had a palpable pulse and good pressure and subsequently the patient was to the emergency department. Shortly after initial evaluation in the emergency room, the patient was noted to be apneic and the patient received Narcan multiple units, one on the field, 2 mg and 4 mg IV Narcan in the emergency department with minimal response, did not gain consciousness and subsequently the patient was intubated in the emergency department and admitted to the hospital for acute respiratory failure, altered mental status. PAST MEDICAL AND SURGICAL HISTORY: Unknown. ALLERGIES: Unknown. SOCIAL HISTORY: Unknown. FAMILY HISTORY: Unknown. REVIEW OF SYSTEMS: Unknown. PHYSICAL EXAMINATION: VITAL SIGNS: On admission, temperature 98.2, pulse of 130, respirations 18, and blood pressure 122/78. GENERAL: The patient is intubated, sedated, opens his eyes with deep stimulation. HEENT: Head and neck examination, pupils are equal and reactive the light. Dilated pupil. Neck was supple. No JVD. ET tube in mouth was noted. LUNGS: Good air entry. No wheezing or rhonchi. The patient has mechanical breath sounds. HEART: S1 and S2 tachycardic. No murmur or gallop was appreciated. ABDOMEN: Soft, nondistended, nontender. Positive bowel sounds. EXTREMITIES: No cyanosis, clubbing, edema. NEUROLOGIC: Limited secondary to the patient's status. However, the patient is able to move extremities spontaneously. RECTAL/GENITOURINARY: Refused and deferred. PSYCHIATRIC: Mood and affect, unknown. LABORATORY AND DIAGNOSTIC DATA: Laboratory on admission from the emergency department, WBC of 9.0, hemoglobin 14, hematocrit 42, and platelets 285. Sodium 138, potassium 3.9, chloride 102, bicarbonate 20, BUN 27, creatinine 1.2. GFR greater than 60. Total bilirubin of 1.1, direct bilirubin of 0.3. Total protein is 7.0, albumin is 4.2. PT 10, INR 1.0, PTT of 27. Urinalysis +3 ketone, +1 protein, +1 blood, 0 to 2 rbc's. Urine drug screen positive for amphetamine, cocaine, marijuana. No alcohol. No acetaminophen level or salicylate level. ABG, pH of 7.3, pCO2 of 30, and pO2 of 160, saturating 98%. CT of the head was done in the ER. No mass effect, edema, or acute bleeding. Fracture of nasal bone was identified. X-ray of the abdomen, NG tube in a good position, no acute finding. Chest x-ray still pending. ASSESSMENT: 1. Altered mental status, most likely secondary to metabolic encephalopathy as a result of substance abuse. 2. Polysubstance abuse. 3. Acute respiratory failure. PLAN: 1. Admit the patient to MICU. 2. We will follow up with the laboratory in the morning. 3. IV hydration, Protonix. 4. Code status is Full Code. 5. DVT prophylaxis, SCD. 6. We will try to wean off the sedative medication to evaluate the patient appropriately better and possible extubation. 7. Follow up with Dr. Cadena consultation from Pulmonary Critical Care. Luc Mota M.D. DR: Lobito JOB#: [id number] CC:
--- NOTE | 2019-09-12 17:04 | NUR ---
NURSE NOTES: Patient asking for food at this time. Contacted Alexander Ceballos to ask if patient can have something to eat. Received order to keep patient NPO and give him ice chips. Will let patient know and follow order.
--- NOTE | 2019-09-12 19:15 | NUR ---
HAND-OFF: Report given to FRANCIS Chin. Endorsed to follow up. Patient just informed us that his name is not Ramirez but Madi. Endorsed to follow up and record correct name in the chart.
--- NOTE | 2019-09-12 19:30 | NUR ---
NURSE NOTES: Received report from FRANCIS Paz. Patient in bed awake,alert oriented to name with confusion and disorientation. Reoriented x3 and reality orientation provided. No SOB oxygen saturation room air 98%. NO N/V. no s/s of acute distress. Instructed patient to use call light for assistance. bed alarm on. bed locked and in low position. Lock draining with light michael urine. Right IV intact infusing D5 1/2 NS at 75cc/hr. NPO. will continue plan of care.
--- NOTE | 2019-09-12 21:30 | NUR ---
NURSE NOTES: Patient in bed with anxiety and agitation. Instructed patient to verbalize needs, fears and feelings to staff. Reality orientation provided. called Dr. Cadena regarding Haldol order per Emily Haldol is 2nd choice but Ativan was D/C by . Per Dr. Cadena only Haldol noted. Frequent visual check continued. Call light within easy reach.
--- NOTE | 2019-09-12 23:30 | NUR ---
NURSE NOTES: Patient in bed sleeping comfortably. No SOB. No N/V. No diarrhea. no Fever. NPO. Patient able to follow simple instructions. Denies any pain or discomfort. Skin warm and dry to touch. bed alarm on. bed locked and in low position. no s/s of acute distress noted. frequent visual checks continued.
[2019-09-13] VITALS (10 sets, daily range): BP systolic 86–109; BP diastolic 43–60
--- NOTE | 2019-09-13 01:30 | NUR ---
NURSE NOTES: Patient in bed sleeping comfortably. No SOB. No N/V. No diarrhea. no Fever. NPO. Denies any pain or discomfort. Skin warm and dry to touch. bed alarm on. bed locked and in low position. no s/s of acute distress noted. frequent visual checks continued.
--- NOTE | 2019-09-13 03:25 | NUR ---
NURSE NOTES: Patient in bed sleeping comfortably. No SOB oxygen saturation 98%. No N/V. No diarrhea. no Fever. NPO. Patient able to follow simple instructions. Denies any pain or discomfort. bed alarm on. bed locked and in low position. no s/s of acute distress noted. frequent visual checks continued. Call light within easy reach.
[2019-09-13] MEDS ORDERED: Haloperidol Lactate 5 MG in D5W 55 ML IVPB PRN (06:00)
[2019-09-13] MEDS ORDERED: Albuterol/Ipratropium 3ml neb HHN PRN (06:00)
[2019-09-13] MEDS ORDERED: Nitroglycerin Subl 0.4mg tab SL PRN (06:00)
[2019-09-13] MEDS ORDERED: D5 1/2NS 1,000 ML IV SCH (06:00)
[2019-09-13 06:04] LABS: BASOPHILS % (AUTO) 0.5 % (0.0-2.0); EOSINOPHILS % (AUTO) 1.3 % (0.0-3.0); HEMATOCRIT 35.2 % (42.0-52.0); HEMOGLOBIN 13.2 G/DL (14.2-18.0); LYMPHOCYTES % (AUTO) 20.7 % (20.0-45.0); MEAN CORPUSCULAR VOLUME 93 FL (80-99); MONOCYTES % (AUTO) 7.9 % (1.0-10.0); NEUTROPHILS % (AUTO) 69.5 % (45.0-75.0); PLATELET COUNT 190 K/UL (150-450); RED BLOOD COUNT 3.78 M/UL (4.70-6.10); RED CELL DISTRIBUTION WIDTH 10.6 % (11.6-14.8); WHITE BLOOD COUNT 9.8 K/UL (4.8-10.8)
--- NOTE | 2019-09-13 06:10 | NUR ---
TRANSFER TO FLOOR: Patient transferred to telemetry 210-2 , per Dr. Cadena . Report given to My RN. Belongings and medications given to My RN.
[2019-09-13] MEDS ORDERED: dilTIAZem HCl 25mg/5ml Inj IV PRN (06:15)
--- NOTE | 2019-09-13 06:15 | NUR ---
NURSE NOTES: Pt transferred from ICU to [facility] without any incident. Received report from FRANCIS Chin. Pt is A/Ox1. [place] pt to room and unit. patient monitor is in placed, IV site intact, asymptomatic and patent; currently running D5 1/2 NS @75cc/hr. Belongings list checked and signed. Orders received. Bed is in the lowest position and locked. Call light and bedside table is within reach. No signs/symptoms of acute distress noted at this time. Will continue plan of care.
[2019-09-13 06:32] LABS: ALANINE AMINOTRANSFERASE 32 U/L (12-78); ALBUMIN 3.1 G/DL (3.4-5.0); ALBUMIN/GLOBULIN RATIO 1.2 (1.0-2.7); ALKALINE PHOSPHATASE 39 U/L (46-116); ANION GAP 10 mmol/L (5-15); ASPARTATE AMINO TRANSFERASE 15 U/L (15-37); BILIRUBIN,TOTAL 1.1 MG/DL (0.2-1.0); BLOOD UREA NITROGEN 10 mg/dL (7-18); CALCIUM 7.7 MG/DL (8.5-10.1); CARBON DIOXIDE 24 MMOL/L (21-32); CHLORIDE 107 MMOL/L (98-107); CREATININE 0.8 MG/DL (0.55-1.30); PHOSPHORUS 2.7 MG/DL (2.5-4.9); POTASSIUM 3.4 MMOL/L (3.5-5.1); SODIUM 141 MMOL/L (136-145)
[2019-09-13 06:33] LABS: BILIRUBIN,DIRECT 0.2 MG/DL (0.0-0.3)
--- NOTE | 2019-09-13 07:51 | NUR ---
HAND-OFF: Report given to FRANCIS Dobson. Plan of care endorsed.
--- NOTE | 2019-09-13 07:51 | NUR ---
NURSE NOTES: received patient report from zhane zapata. patient is on bed awake.not in acute distress. patient is on becerra. patent and draining. patient is noted to be lethargic, unstable. will keep the patient on bed rest. on RA tolerating well. will continue plan of care.
[2019-09-13] MEDS ORDERED: Pantoprazole Inj IVP SCH (09:00)
--- NOTE | 2019-09-13 10:04 | Pulmonology Progress Note ---
Assessment/Plan Assessment/Plan Pulmonary Progress Note Assessment/Plan Problems: (1) Acute respiratory failure (2) AMS (altered mental status) (3) Multiple drug overdose Respiratory: monitor respiratory rate, adjust FIO2, extubated Cardiac: continue to monitor HR/BP Renal: F/U I&O Infectious Disease: check cultures Gastrointestinal: continue feedings/current rate Endocrine: monitor blood sugar Hematologic: monitor H/H Neurologic: Improved - probable recent overdose sedatives Objective Vital Signs Noted awake HEENT: atraumatic Neck: full ROM Lungs: CTAB Heart: HS1, HS2, RRR Abdomen: non-tender, feeding tube Extremities: no C/C/E PRIVATE ADVISOR: no focal signs Interval Events: Extubated, on floor Labs: Laboratory Tests Test 09/11/19 19:30 09/11/19 20:36 09/12/19 04:50 White Blood Count 9.0 K/UL (4.8-10.8) 10.6 K/UL (4.8-10.8) Red Blood Count 4.33 M/UL (4.70-6.10) L 3.58 M/UL (4.70-6.10) L Hemoglobin 14.7 G/DL (14.2-18.0) 12.5 G/DL (14.2-18.0) L Hematocrit 42.5 % (42.0-52.0) 33.5 % (42.0-52.0) L Mean Corpuscular Volume 98 FL (80-99) 94 FL (80-99) Mean Corpuscular Hemoglobin 33.9 PG (27.0-31.0) H 34.9 PG (27.0-31.0) H Mean Corpuscular Hemoglobin Concent 34.5 G/DL (32.0-36.0) 37.3 G/DL (32.0-36.0) H Red Cell Distribution Width 11.1 % (11.6-14.8) L 10.6 % (11.6-14.8) L Platelet Count 285 K/UL (150-450) 323 K/UL (150-450) Mean Platelet Volume 7.1 FL (6.5-10.1) 5.5 FL (6.5-10.1) L Neutrophils (%) (Auto) 65.2 % (45.0-75.0) 69.4 % (45.0-75.0) Lymphocytes (%) (Auto) 24.9 % (20.0-45.0) 20.1 % (20.0-45.0) Monocytes (%) (Auto) 8.1 % (1.0-10.0) 8.5 % (1.0-10.0) Eosinophils (%) (Auto) 1.0 % (0.0-3.0) 1.0 % (0.0-3.0) Basophils (%) (Auto) 0.9 % (0.0-2.0) 1.0 % (0.0-2.0) Urine Color Yellow Urine Appearance Slightly cloudy Urine pH 5 (4.5-8.0) Urine Specific [place] 1.025 (1.005-1.035) Urine Protein 1+ (NEGATIVE) H Urine Glucose (UA) Negative (NEGATIVE) Urine Ketones 3+ (NEGATIVE) H Urine Blood 1+ (NEGATIVE) H Urine Nitrite Negative (NEGATIVE) Urine Bilirubin Negative (NEGATIVE) Urine Urobilinogen Normal MG/DL (0.0-1.0) Urine Leukocyte Esterase Negative (NEGATIVE) Urine RBC 0-2 /HPF (0 - 0) H Urine WBC 0-2 /HPF (0 - 0) Urine Squamous Epithelial Cells None /LPF (NONE/OCC) Urine Bacteria Few /HPF (NONE) Sodium Level 138 MMOL/L (136-145) 137 MMOL/L (136-145) Potassium Level 3.9 MMOL/L (3.5-5.1) 4.1 MMOL/L (3.5-5.1) Chloride Level 102 MMOL/L (98-107) 102 MMOL/L (98-107) Carbon Dioxide Level 20 MMOL/L (21-32) L 16 MMOL/L (21-32) L Anion Gap 16 mmol/L (5-15) H 19 mmol/L (5-15) H Blood Urea Nitrogen 27 mg/dL (7-18) H 18 mg/dL (7-18) Creatinine 1.2 MG/DL (0.55-1.30) 1.0 MG/DL (0.55-1.30) Estimat Glomerular Filtration Rate > 60 mL/min (>60) > 60 mL/min (>60) Glucose Level 91 MG/DL (74-106) 109 MG/DL (74-106) H Lactic Acid Level 0.80 mmol/L (0.4-2.0) Calcium Level 8.9 MG/DL (8.5-10.1) 8.9 MG/DL (8.5-10.1) Total Bilirubin 1.1 MG/DL (0.2-1.0) H 1.5 MG/DL (0.2-1.0) H Direct Bilirubin 0.3 MG/DL (0.0-0.3) 0.2 MG/DL (0.0-0.3) Aspartate Amino Transf (AST/SGOT) 39 U/L (15-37) H 37 U/L (15-37) Alanine Aminotransferase (ALT/SGPT) 47 U/L (12-78) 43 U/L (12-78) Alkaline Phosphatase 51 U/L (46-116) 53 U/L (46-116) Troponin I 0.000 ng/mL (0.000-0.056) Total Protein 7.0 G/DL (6.4-8.2) 7.6 G/DL (6.4-8.2) Albumin 4.2 G/DL (3.4-5.0) 4.2 G/DL (3.4-5.0) Globulin 2.8 g/dL Albumin/Globulin Ratio 1.5 (1.0-2.7) Salicylates Level < 0.2 ug/mL (2.8-20) L Urine Opiates Screen Negative (NEGATIVE) Acetaminophen Level < 2 MCG/ML (10-30) L Urine Barbiturates Screen Negative (NEGATIVE) Phencyclidine (PCP) Screen Negative (NEGATIVE) Urine Amphetamines Screen Positive (NEGATIVE) H Urine Benzodiazepines Screen Negative (NEGATIVE) Urine Cocaine Screen Positive (NEGATIVE) H Urine Marijuana (THC) Screen Positive (NEGATIVE) H Serum Alcohol < 3 mg/dL Arterial Blood pH 7.317 (7.350-7.450) Arterial Blood Partial Pressure CO2 30.2 mmHg (35.0-45.0) L Arterial Blood Partial Pressure O2 160.1 mmHg (75.0-100.0) H Arterial Blood HCO3 15.1 mmol/L (22.0-26.0) *L Arterial Blood Oxygen Saturation 98.7 % (95-100) Arterial Blood Base Excess -9.5 (-2-2) *L Hoang Test Positive Prothrombin Time 10.7 SEC (9.30-11.50) Prothromb Time International Ratio 1.0 (0.9-1.1) Activated Partial Thromboplast Time 27 SEC (23-33) Phosphorus Level 4.7 MG/DL (2.5-4.9) Lactate Dehydrogenase 272 U/L (81-234) H Subjective ROS Limited/Unobtainable: No Allergies: Coded Allergies: UNABLE TO ASSESS (Unverified , 09/11/19) Objective Last 24 Hour Vital Signs Date Time Temp Pulse Resp B/P (MAP) Pulse Ox O2 Delivery O2 Flow Rate FiO2 09/13/19 08:13 100 Room Air 21 09/13/19 06:00 98 20 100/53 (69) 96 09/13/19 05:00 103 22 97/53 (68) 96 09/13/19 04:00 89 09/13/19 04:00 Room Air 09/13/19 04:00 98.6 89 21 100/48 (65) 97 09/13/19 03:00 90 22 98/57 (71) 09/13/19 02:00 99 24 88/50 (63) 95 09/13/19 01:30 101 22 86/43 (57) 97 09/13/19 01:01 93 21 92/45 (61) 98 09/13/19 01:00 93 22 86/50 (62) 98 09/13/19 00:30 92 24 109/60 (76) 98 09/13/19 00:00 99 09/13/19 00:00 98.4 98 21 98/57 (71) 96 09/13/19 00:00 Room Air 09/12/19 23:30 98 22 103/60 (74) 97 09/12/19 23:00 100 24 105/58 (74) 97 09/12/19 22:00 112 21 107/64 (78) 99 09/12/19 21:30 112 20 110/76 (87) 100 09/12/19 21:14 110 20 110/63 (79) 95 09/12/19 21:00 118 24 93/47 (62) 95 09/12/19 20:30 108 26 102/55 (71) 95 09/12/19 20:00 Room Air 09/12/19 20:00 105 09/12/19 20:00 98.0 107 26 103/62 (76) 97 09/12/19 19:16 100 Room Air 21 09/12/19 19:00 115 19 124/71 (88) 100 09/12/19 18:00 119 19 109/63 (78) 98 09/12/19 17:00 127 18 109/63 (78) 97 09/12/19 16:00 3.0 09/12/19 16:00 106 09/12/19 16:00 Room Air 09/12/19 16:00 98.4 107 25 111/61 (78) 99 09/12/19 15:00 111 23 114/71 (85) 09/12/19 14:00 119 22 104/70 (81) 97 09/12/19 13:00 100 Nasal Cannula 3.0 32 09/12/19 13:00 115 22 107/74 (85) 97 09/12/19 12:00 Nasal Cannula 3.0 09/12/19 12:00 98.3 117 29 115/66 (82) 100 09/12/19 12:00 3.0 09/12/19 12:00 Nasal Cannula 3.0 32 09/12/19 12:00 101 09/12/19 11:24 105 16 30 09/12/19 11:00 108 16 90/61 (71) 100 Intake and Output 09/12/19 09/13/19 19:00 07:00 Intake Total 900 ml 753 ml Output Total 375 ml 515 ml Balance 525 ml 238 ml IV Total 900 ml 753 ml Output Urine Total 375 ml 515 ml # Voids 1 Microbiology Date/Time Source Procedure Growth Status 09/11/19 19:45 Blood Blood Culture - Preliminary NO GROWTH AFTER 24 HOURS Resulted 09/11/19 19:30 Blood Blood Culture - Preliminary NO GROWTH AFTER 24 HOURS Resulted Laboratory Tests 09/13/19 04:58: White Blood Count 9.8, Red Blood Count 3.78L, Hemoglobin 13.2L, Hematocrit 35.2L , Mean Corpuscular Volume 93, Mean Corpuscular Hemoglobin 34.9H, Mean Corpuscular Hemoglobin Concent 37.5H, Red Cell Distribution Width 10.6L, Platelet Count 190, Mean Platelet Volume 6.5, Neutrophils (%) (Auto) 69.5, Lymphocytes (%) (Auto) 20.7, Monocytes (%) (Auto) 7.9, Eosinophils (%) (Auto) 1.3, Basophils (%) (Auto) 0.5, Erythrocyte Sedimentation Rate 16H, Sodium Level 141, Potassium Level 3.4L, Chloride Level 107, Carbon Dioxide Level 24, Anion Gap 10, Blood Urea Nitrogen 10, Creatinine 0.8, Estimat Glomerular Filtration Rate > 60, Glucose Level 81, Calcium Level 7.7L, Phosphorus Level 2.7, Magnesium Level 1.9, Total Bilirubin 1.1H, Direct Bilirubin 0.2, Aspartate Amino Transf (AST/SGOT) 15, Alanine Aminotransferase (ALT/SGPT) 32, Alkaline Phosphatase 39L, C-Reactive Protein, Quantitative 7.9H, Total Protein 5.6L, Albumin 3.1L, Globulin 2.5, Albumin/Globulin Ratio 1.2, Lipase 367 Current Medications Medications (Trade) Dose Ordered Sig/Peña Route PRN Reason Start Time Stop Time Status Last Admin Dose Admin Acetaminophen (Tylenol) 650 mg Q4H PRN ORAL Fever 09/13/19 06:00 10/11/19 05:59 Albuterol/ Ipratropium (Albuterol/ Ipratropium) 3 ml Q4H PRN HHN Shortness of Breath 09/13/19 06:00 09/16/19 05:59 Dextrose (Dextrose 50%) 25 ml Q30M PRN IV Hypoglycemia 09/13/19 06:15 10/11/19 21:14 Dextrose (Dextrose 50%) 50 ml Q30M PRN IV Hypoglycemia 09/13/19 06:15 10/11/19 21:14 Dextrose/Sodium Chloride 1,000 ml @ 75 mls/hr [id number] IV 09/13/19 06:00 10/11/19 21:10 09/13/19 06:31 Diltiazem HCl (Cardizem) 10 mg Q1H PRN IV heart rate more than 120, 09/13/19 06:15 10/11/19 21:14 Haloperidol Lactate 5 mg/ Dextrose 56 ml @ 224 mls/hr Q4H PRN IVPB Agitation-2ND CHOICE 09/13/19 06:00 10/12/19 05:59 Nitroglycerin (Ntg) 0.4 mg Q5M PRN SL Prn Chest Pain 09/13/19 06:00 10/11/19 21:14 Ondansetron HCl (Zofran) 4 mg Q6H PRN IVP Nausea & Vomiting 09/13/19 06:00 10/11/19 05:59 Pantoprazole (Protonix) 40 mg EVERY 12 HOURS IVP 09/13/19 09:00 10/12/19 11:59 09/13/19 08:45 Homero Meadows MD Sep 13, 2019 10:04
--- NOTE | 2019-09-13 14:00 | Internal Med Progress Note ---
Subjective Date of Service: Sep 13, 2019 Physician Name Rudi Baptiste Attending Physician Luc Mota MD Current Medications Medications (Trade) Dose Ordered Sig/Peña Route PRN Reason Start Time Stop Time Status Last Admin Dose Admin Acetaminophen (Tylenol) 650 mg Q4H PRN ORAL Fever 09/13/19 06:00 10/11/19 05:59 Albuterol/ Ipratropium (Albuterol/ Ipratropium) 3 ml Q4H PRN HHN Shortness of Breath 09/13/19 06:00 09/16/19 05:59 Dextrose (Dextrose 50%) 25 ml Q30M PRN IV Hypoglycemia 09/13/19 06:15 10/11/19 21:14 Dextrose (Dextrose 50%) 50 ml Q30M PRN IV Hypoglycemia 09/13/19 06:15 10/11/19 21:14 Dextrose/Sodium Chloride 1,000 ml @ 75 mls/hr [id number] IV 09/13/19 06:00 10/11/19 21:10 09/13/19 06:31 Diltiazem HCl (Cardizem) 10 mg Q1H PRN IV heart rate more than 120, 09/13/19 06:15 10/11/19 21:14 Haloperidol Lactate 5 mg/ Dextrose 56 ml @ 224 mls/hr Q4H PRN IVPB Agitation-2ND CHOICE 09/13/19 06:00 10/12/19 05:59 Nitroglycerin (Ntg) 0.4 mg Q5M PRN SL Prn Chest Pain 09/13/19 06:00 10/11/19 21:14 Ondansetron HCl (Zofran) 4 mg Q6H PRN IVP Nausea & Vomiting 09/13/19 06:00 10/11/19 05:59 Pantoprazole (Protonix) 40 mg EVERY 12 HOURS IVP 09/13/19 09:00 10/12/19 11:59 09/13/19 08:45 Allergies: Coded Allergies: UNABLE TO ASSESS (Unverified , 09/11/19) ROS Limited/Unobtainable: No Constitutional: Reports: no symptoms HEENT: Reports: no symptoms Cardiovascular: Reports: no symptoms Respiratory: Reports: no symptoms Gastrointestinal/Abdominal: Reports: no symptoms Genitourinary: Reports: no symptoms Neurologic/Psychiatric: Reports: no symptoms Subjective 24 YO admitted with altered status and respiratory failure. Anxious to leave. Cover for Int Robert-DR Mota. Extubated 09/12/19; tolerating room air Objective Last Vital Signs Date Time Temp Pulse Resp B/P (MAP) Pulse Ox O2 Delivery O2 Flow Rate FiO2 09/13/19 12:00 Room Air 09/13/19 11:46 80 09/13/19 08:13 100 21 09/13/19 06:00 20 100/53 (69) 09/13/19 04:00 98.6 09/12/19 16:00 3.0 Laboratory Tests Test 09/13/19 04:58 White Blood Count 9.8 K/UL (4.8-10.8) Red Blood Count 3.78 M/UL (4.70-6.10) L Hemoglobin 13.2 G/DL (14.2-18.0) L Hematocrit 35.2 % (42.0-52.0) L Mean Corpuscular Volume 93 FL (80-99) Mean Corpuscular Hemoglobin 34.9 PG (27.0-31.0) H Mean Corpuscular Hemoglobin Concent 37.5 G/DL (32.0-36.0) H Red Cell Distribution Width 10.6 % (11.6-14.8) L Platelet Count 190 K/UL (150-450) Mean Platelet Volume 6.5 FL (6.5-10.1) Neutrophils (%) (Auto) 69.5 % (45.0-75.0) Lymphocytes (%) (Auto) 20.7 % (20.0-45.0) Monocytes (%) (Auto) 7.9 % (1.0-10.0) Eosinophils (%) (Auto) 1.3 % (0.0-3.0) Basophils (%) (Auto) 0.5 % (0.0-2.0) Erythrocyte Sedimentation Rate 16 MM/HR (0-15) H Sodium Level 141 MMOL/L (136-145) Potassium Level 3.4 MMOL/L (3.5-5.1) L Chloride Level 107 MMOL/L (98-107) Carbon Dioxide Level 24 MMOL/L (21-32) Anion Gap 10 mmol/L (5-15) Blood Urea Nitrogen 10 mg/dL (7-18) Creatinine 0.8 MG/DL (0.55-1.30) Estimat Glomerular Filtration Rate > 60 mL/min (>60) Glucose Level 81 MG/DL (74-106) Calcium Level 7.7 MG/DL (8.5-10.1) L Phosphorus Level 2.7 MG/DL (2.5-4.9) Magnesium Level 1.9 MG/DL (1.8-2.4) Total Bilirubin 1.1 MG/DL (0.2-1.0) H Direct Bilirubin 0.2 MG/DL (0.0-0.3) Aspartate Amino Transf (AST/SGOT) 15 U/L (15-37) Alanine Aminotransferase (ALT/SGPT) 32 U/L (12-78) Alkaline Phosphatase 39 U/L (46-116) L C-Reactive Protein, Quantitative 7.9 mg/dL (0.00-0.90) H Total Protein 5.6 G/DL (6.4-8.2) L Albumin 3.1 G/DL (3.4-5.0) L Globulin 2.5 g/dL Albumin/Globulin Ratio 1.2 (1.0-2.7) Lipase 367 U/L (73-393) Microbiology Date/Time Source Procedure Growth Status 09/11/19 19:45 Blood Blood Culture - Preliminary NO GROWTH AFTER 24 HOURS Resulted 09/11/19 19:30 Blood Blood Culture - Preliminary NO GROWTH AFTER 24 HOURS Resulted Intake and Output 09/12/19 09/13/19 19:00 07:00 Intake Total 900 ml 753 ml Output Total 375 ml 515 ml Balance 525 ml 238 ml IV Total 900 ml 753 ml Output Urine Total 375 ml 515 ml # Voids 1 Assessment/Plan Assessment/Plan ASSESSMENT: 1. Altered mental status, most likely secondary to metabolic encephalopathy as a result of substance abuse. 2. Polysubstance abuse. 3. Acute respiratory failure. PLAN: 1. Telemetry status 2. Extubated 09/12/19; tolerating room air 3. IV hydration, Protonix. 4. Code status is Full Code. 5. DVT prophylaxis, SCD. 6. Dr. Cadena consultation=Pulmonary Critical Care. 7. Discharge home today; follow up with primary care physician Rudi Baptiste MD Sep 13, 2019 14:00
[2019-09-13] MEDS ORDERED: NS 275ml ONE (14:59)
[2019-09-13] MEDS ORDERED: D5 1/2NS 1000ml IV ONE (14:59)
[2019-09-13] MEDS ORDERED: Tubing IV Secondary IV ONE (14:59)
--- NOTE | 2019-09-13 15:27 | NUR ---
NURSE NOTES: patient was discharged home per drs order. iv line removed and bleeding was stopped. ekg monitor and endorsed to [place].packet was refused by the patient. patient stated that he doesnt need it.offered tap card for the bus. called [employer] for the tap card but supervisor [employer] was so busy in icu and per [facility] patient has to wait. patient is stable. aox4. not in acute distress.
--- NOTE | 2019-09-15 09:41 | Discharge Summary ---
Discharge Summary Discharge Summary _ DATE OF ADMISSION: 09/11/2019 DATE OF DISCHARGE: 09/13/2019 DISCHARGED BY: Dr. Kumar REASON FOR ADMISSION: 24 years old male, initially presented as [place], brought by paramedics for altered mental status. Apparently patient woke into a convenience store, fell to the ground and was unresponsive. Paramedics gave 2 mg of intramuscular Narcan without effect , followed by another 4 mg of IV Narcan with mild improvement in respiratory rate. Patient however did not regain consciousness. During the transportation he was bagged for intermittent apnea. Upon arrival patient did not respond to painful stimuli , had no gag reflex and demonstrated agonal breathing with intermittent apnea. Patient subsequently was intubated for airway protection. Laboratory work-up revealed no leukocytosis, stable hemoglobin and hematocrit. Urinalysis revealed +1 protein , +3 ketones , no evidence of urinary tract infection. Stable electrolytes. BUN 27, creatinine 1.2. Lactic acid 0.8. Glucose 91. Troponin negative. AST 39, ALT 47. Urine toxicology screen was positive for cocaine, marijuana and amphetamines. Serum salicylate was negative. EKG revealed atrial fibrillation/flutter with rapid ventricular response , heart rate 130. Cardizem IV was given , and patient was converted to sinus rhythm. CT of the head revealed no acute intracranial pathology. Fracture of the nasal bone noted. Chest x-ray demonstrated clear lungs. ABG done after intubation showed pH 7.31 ,PCO2 30 ,bicarb 15 . Patient admitted to ICU for further management . CONSULTANTS: pulmonary Dr. Cadena GI specialist zulay [facility] COURSE: Patient admitted to ICU. Patient started on the IV fluids . Ventilator support and pulmonary toilet provided. DVT and GI prophylaxis provided. Patient initially was sedated . Patient had orogastric tube . Noted coffee-ground emesis. GI specialist consulted. Hemoglobin and hematocrit remained stable. Patient initially was kept n.p.o. with IV fluids , and orogastric tube was connected to low intermittent suction. Patient started on on Protonix IV twice a day. H Hemoglobin and hematocrit were closely monitored , remained stable . Prior to discharge hemoglobin 13.2, hematocrit 25.2. Lipase within normal limits. No further emesis. Patient was started on the weaning protocol. Patient was able to be extubated on 09/12. Pulse oximetry was stable on room air. Telemetry showed sinus rhythm, occasional low tachycardia. Patient was slowly started on diet and was able to tolerate it. Supportive care provided. Patient was counseled on abstinence from illicit street drugs. Patient was stable for discharge FINAL DIAGNOSES: Acute respiratory failure requiring intubation, status post extubation Altered mental status, most likely secondary to metabolic encephalopathy as a result of substance abuse Multiple drug overdose Atrial fibrillation with rapid ventricular response -resolved DISCHARGE MEDICATIONS: See Medication Reconciliation list. DISCHARGE INSTRUCTIONS: Patient was discharged home. Follow-up with primary care provider in 1 week. I have been assigned to dictate discharge summary for this account. I was not involved in the patient's management. Ashley Chavis NP Sep 15, 2019 09:41
== END 2019-09-13 15:00 | disposition home or self-care (01) | DRG 208 ==
LOC: EDBD 18:12 → EMR 18:59 → ICU 19:18 → EDBEDREQ 19:44 → 2E 09-13 05:55
PROC: 5A1935Z Respiratory Ventilation, Less than 24 Consecutive Hours (ICD-10-PCS; principal; 2019-09-11)
PROC: 0BH17EZ Insertion of Endotracheal Airway into Trachea, Via Natural or Artificial Opening (ICD-10-PCS; principal; 2019-09-11)
DX: J96.00 Acute respiratory failure, unspecified whether with hypoxia or hypercapnia (principal); G93.41 Metabolic encephalopathy; D64.9 Anemia, unspecified; F19.10 Other psychoactive substance abuse, uncomplicated; T50.911A Poisoning by multiple unspecified drugs, medicaments and biological substances, accidental (unintentional), initial encounter; I48.91 Unspecified atrial fibrillation
CPT/HCPCS: 31500; 36415; 36600; 70450; 71045; 74018; 80048; 80053; 80076; 80307; 81003; 82248; 82803; 83605; 83615; 83690; 83735; 84100; 84484; 85025; 85610; 85651; 85730; 86140; 87040; 93005; 94002; 94003; 94664; 96365; 96367; 96375; 99291; G0480; J2310; J2405; J7030